=== PATIENT | male | born 1970 | race African-American/Black ===

== ENCOUNTER 2017-06-02 01:02 | Emergency (ER) | payer SELFPAY ==
[~2017-06-02] VITALS: Ht 180.3 cm; Wt 81.6 kg
[~2017-06-02 01:02] MED LIST: RISPERDAL0.25 MG ORAL
[2017-06-02 01:05] VITALS: BP 130/93
[2017-06-02] MEDS ORDERED: RISPERDAL2 MG ORAL (01:43)
--- NOTE | 2017-06-02 01:43 | Emergency Room Report ---
History of Present Illness General Chief Complaint: Behavioral Complaint Source: Patient, EMS Present Illness HPI This is a 47-year-old male with a history of schizophrenia. He said he is out of his cervical and respiratory. He said he lost them. has been out for about a month. He complaining of hearing more voices. No particular plans. Denies suicidal thoughts or homicidal thoughts. Denies any drug use. The symptoms in the past. Allergies: Coded Allergies: No Known Allergies (Unverified , 06/02/17) Patient History Past Medical History: see triage record, old chart reviewed, psych hx Past Surgical History: other Pertinent Family History: none Social History: Denies: smoking Immunizations: other Reviewed Nursing Documentation: PMH: Agreed, PSxH: Agreed Nursing Documentation-PMH Past Medical History: No History, Except For History Of Psychiatric Problem: Yes - Bipolar, depression Review of Systems Eye: Denies: eye pain, blurred vision ENT: Denies: ear pain, nose congestion, throat swelling Respiratory: Denies: cough, shortness of breath Cardiovascular: Denies: chest pain, palpitations Gastrointestinal: Denies: abdominal pain, diarrhea, nausea, vomiting Musculoskeletal: Denies: back pain, joint pain Skin: Denies: rash Neurological: Denies: headache, numbness Endocrine: Denies: increased thirst, increased urine Hematologic/Lymphatic: Denies: easy bruising All Other Systems: negative except mentioned in HPI Physical Exam Vital Signs Date Time Temp Pulse Resp B/P (MAP) Pulse Ox O2 Delivery O2 Flow Rate FiO2 06/02/17 00:55 97.5 88 16 130/93 100 Room Air vitals normal Sp02 EP Interpretation: reviewed, normal General Appearance: well appearing, no apparent distress, alert Head: normocephalic, atraumatic Eyes: bilateral eye PERRL, bilateral eye EOMI ENT: hearing grossly normal, normal pharynx Neck: full range of motion, supple, no meningismus Respiratory: chest non-tender, lungs clear, normal breath sounds Cardiovascular #1: regular rate, rhythm, no murmur Gastrointestinal: normal bowel sounds, non tender, no mass, no organomegaly, no bruit, non-distended Musculoskeletal: back normal, gait/station normal, normal range of motion Psychiatric: mood/affect normal Skin: warm/dry Medical Decision Making Diagnostic Impression: Primary Impression: Psychosis Qualified Codes: F23 - Brief psychotic disorder ER Course 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 No suicidal thoughts or homicidal thought. He is stable. See no criteria for 5150. We'll discharge home. patient slept through the night. he felt better now. We'll discharge. Last Vital Signs Date Time Temp Pulse Resp B/P (MAP) Pulse Ox O2 Delivery O2 Flow Rate FiO2 06/02/17 00:55 97.5 88 16 130/93 100 Room Air Status: improved Disposition: HOME, SELF-CARE Condition: Stable Scripts Risperidone* (RISPERDAL*) 2 Mg Tablet 2 MG ORAL DAILY, #30 TAB 0 Refills Prov: ANITA CARRINGTON M.D. 06/02/17 Referrals: NOT CHOSEN [facility]/,REFERRING (PCP) Additional Instructions: Followup with mental health in a week. Take your medication. Return if worse. ANITA CARRINGTON M.D. Jun 02, 2017 01:43
[2017-06-02 03:20] VITALS: BP 128/82
[2017-06-02 05:15] VITALS: BP 122/82
[2017-06-02 06:25] VITALS: BP 122/82
== END 2017-06-02 06:25 | disposition home or self-care (01) ==
LOC: EDBD 01:02 → EMR 01:25
DX: F29 Unspecified psychosis not due to a substance or known physiological condition (principal); F31.9 Bipolar disorder, unspecified
CPT/HCPCS: 99283